=== PATIENT | male | born 1985 | race Two or more races ===

== ENCOUNTER 2024-09-15 14:13 | Emergency (ER) | payer BC, OTHER ==
[~2024-09-15] VITALS: Ht 188 cm; Wt 116.7 kg
[2024-09-15] MEDS: LORazepam 2MG/ML-1ML VIAL IV ONE (14:30)
--- NOTE | 2024-09-15 14:43 | ED.PDOC ---
History of Present Illness HPI Comments 39-year-old male presents with a chief complaint of anxiety, nausea, and vomiting s/p alcohol withdrawal. Patient states that his last drink was yesterday, patient mentions that he drinks about 1 pint of Vodka daily. Patient is stating that he is really anxious and has tremors which seem to be pseudo-tremors. Patient endorses vomiting, but has no active vomiting in triage at this time. No other symptoms or modifying factors present at this time. Chief Complaint: Withdrawal Time Seen by MD: 14:27 Reviewed Notes: Medications, Allergies Allergies: Coded Allergies: NO KNOWN ALLERGIES (Unverified , 09/15/24) Information Source: Patient Mode of Arrival: Ambulatory Severity: Moderate Timing: Days Duration: Since onset Prehospital treatment: None Past Medical History Past Medical History (Other): Alcohol dependence Surgical History: Denies all surgeries Family History Family History: Reviewed,noncontributory to illness Social History Smoker: Non-Smoker Alcohol: Denies ETOH Use Drugs: Denies Drug Use Lives In: Home Constitutional: denies: chills, diaphoresis, fatigue, fever, malaise, sweats, weakness, others EENTM: denies: blurred vision, double vision, ear bleeding, ear discharge, ear drainage, ear pain, ear ringing, eye pain, eye redness, hearing loss, mouth pain, mouth swelling, nasal discharge, nose bleeding, nose congestion, nose pain, photophobia, tearing, throat pain, throat swelling, voice changes, others Respiratory: denies: cough, hemoptysis, orthopnea, SOB at rest, shortness of breath, SOB with excertion, stridor, wheezing, others Cardiovascular: denies: chest pain, dizzy spells, diaphoresis, Dyspnea on exertion, edema, irregular heart beat, left arm pain, lightheadedness, palpitations, PND, syncope, others Gastrointestinal: reports: nausea, vomiting; denies: abdomen distended, abdominal pain, blood streaked bowels, constipated, diarrhea, dysphagia, difficulty swallowing, hematemesis, melena, poor appetite, poor fluid intake, rectal bleeding, rectal pain, others Neurological: denies: dizziness, fainting, headache, left sided numbness, left sided weakness, numbness, paresthesia, pre-existing deficit, right sided numbness, right sided weakness, seizure, speech problems, tingling, tremors, weakness, others Musculoskeletal: denies: back pain, gout, joint pain, joint swelling, muscle pain, muscle stiffness, neck pain, others Integumetry: denies: bruises, change in color, change in hair/nails, dryness, laceration, lesions, lumps, rash, wounds, others Allergic/Immunocompromised: denies: Difficulty Healing, Frequent Infections, Hives, Itching, others Hematologic/Lymphatic: denies: anemia, blood clots, easy bleeding, easy bruising, swollen glands, others Endocrine: denies: excessive hunger, excessive sweating, excessive thirst, excessive urination, flushing, intolerance to cold, intolerance to heat, unexplained weight gain, unexplained weight loss, others Psychiatric: reports: anxiety; denies: bipolar disorder, depression, hopeless, panic disorder, schizophrenia, sleepless, suicidal, others All Other Systems: Reviewed and Negative Physical Exam General Appearance: Mild Distress HEENT: Other (Dry mucous membranes) Neck: Full Range of Motion, Normal Inspection Respiratory: Lungs Clear, No Accessory Muscle Use, No Respiratory Distress, Normal Breath Sounds Cardiovascular: No Edema, No JVD, Regular Rate/Rhythm Breast Exam: Deferred Gastrointestinal: Non Tender, Soft Genitalia: Deferred Pelvic: Deferred Rectal: Deferred Extremities: Normal inspection, Normal range of motion, Non-tender, No pedal edema Musculoskeletal : Apperance: Normal Neurologic: Alert (Oriented x4), Normal Affect, No Sensory Deficits, Other (Appears anxious and has bilateral hand tremors) Cerebellar Function: Normal Reflexes: NOT DONE Skin: Dry, Normal Color, Warm Lymphatic: NOT DONE Was a procedure done? Was a procedure done?: No Differential Dx Considerations may include: Alcohol withdrawal, electrolyte imbalance, anxiety, dehydration/hypovolemia, among others X-Ray, Labs, Meds, VS Vital Signs Date Time Temp Pulse Resp B/P (MAP) Pulse Ox O2 Delivery O2 Flow Rate FiO2 09/15/24 18:28 100 20 114/69 (84) 98 09/15/24 15:51 95 18 136/63 (87) 95 09/15/24 14:38 98.0 91 18 120/81 (94) 97 Lab Test 09/15/24 20:00 09/15/24 16:03 09/15/24 14:50 Range/Units Urine Color Yellow Yellow Urine Clarity Clear Clear Urine pH 5.5 5.0-9.0 Urine Specific [place] 1.023 1.001-1.035 Urine Protein 1+ H Negative Urine Ketones Trace Negative Urine Blood Negative Negative /uL Urine Nitrite Negative Negative Urine Bilirubin Negative Negative Urine Urobilinogen Normal Negative mg/dL Urine Leukocyte Esterase Negative Negative /uL Urine RBC 2 0 - 3 /hpf Urine WBC 4 0 - 3 /hpf Urine Squamous Epithelial Cells Few <5 /hpf Urine Bacteria Few H None Seen /hpf Urine Hyaline Casts Few 0 - 2 /lpf Urine Mucus Few None Seen Urine Glucose Normal Normal mg/dL Troponin I High Sensitivity 3 L 3 L </=54 ng/L White Blood Count 9.3 4.4-10.8 10^3/uL Red Blood Count 5.73 H 4.0-5.20 10^6/uL Hemoglobin 16.6 H 12.2-16.2 g/dL Hematocrit 49.0 H 36.0-46.0 % Mean Corpuscular Volume 85.5 80.0-100.0 fL Mean Corpuscular Hemoglobin 28.9 28.0-32.0 pg Mean Corpuscular Hemoglobin Concent 33.8 32.0-36.0 g/dL Red Cell Distribution Width 14.6 H 11.8-14.3 % Platelet Count 218 140-450 10^3/uL Mean Platelet Volume 7.2 6.9-10.8 fL Neutrophils (%) (Auto) 70.8 37.0-80.0 % Lymphocytes (%) (Auto) 25.7 10.0-50.0 % Monocytes (%) (Auto) 3.0 0.0-12.0 % Eosinophils (%) (Auto) 0.2 0.0-7.0 % Basophils (%) (Auto) 0.3 0.0-2.0 % Neutrophils # (Auto) 6.6 1.6-8.6 10 ^3/uL Lymphocytes # (Auto) 2.4 0.4-5.4 10 ^3/uL Monocytes # (Auto) 0.3 0-1.3 10 ^3/uL Eosinophils # (Auto) 0 0-0.8 10 ^3/uL Basophils # (Auto) 0 0-0.2 10 ^3/uL Nucleated Red Blood Cells 0.0 % Sodium Level 146 H 136-145 mmol/L Potassium Level 4.1 3.5-5.1 mmol/L Chloride Level 108 H 98-107 mmol/L Carbon Dioxide Level 28 20-31 mmol/L Anion Gap 10 5-15 Blood Urea Nitrogen 15 9-23 mg/dL Creatinine 0.92 0.700-1.30 mg/dL Glomerular Filtration Rate Calc 108 >90 mL/min BUN/Creatinine Ratio 16.3 10.0-20.0 Serum Glucose 117 H 74-106 mg/dL Calcium Level 9.3 8.7-10.4 mg/dL Plasma/Serum Blood Alcohol 389.4 H <10 mg/dL Current Medications Medications (Trade) Dose Ordered Sig/Juan Route Start Time Stop Time Status Last Admin Lorazepam (Ativan Inj) 1 mg ONCE ONCE IV 09/15/24 14:30 09/15/24 14:34 DC 09/15/24 14:30 Chlordiazepoxide HCl (Librium Capsule) 50 mg ONCE ONCE PO 09/15/24 14:30 09/15/24 14:34 DC 09/15/24 15:00 Sodium Chloride 1,000 ml @ 1,000 mls/hr Q1H ONCE IV 09/15/24 14:30 09/15/24 15:29 DC 09/15/24 15:09 X-Ray, Labs, Meds, VS Comment 39-year-old male with a history of alcohol dependence presenting complaining of anxiety, nausea and vomiting, stating he is in alcohol withdrawal. Vitals unremarkable Exam remarkable for anxiety and bilateral hand tremors Rhythm strip independently interpreted by me: Sinus rhythm, rate 91, no ectopy. CBC unremarkable, metabolic panel remarkable for sodium 146, chloride 108, serial troponins negative x2, alcohol level 389.4 , UA unremarkable for any abnormality of acute significance Patient treated with the following in the ED: 1 L 0.9 normal saline IV bolus, Ativan 1 mg IV, Librium 50 mg p.o. On re-evaluation, patient states he feels much better and is no longer appearing tremulous. Vitals were stable. Hospitalization was considered, however patient had rapid improvement of symptoms with treatment in the ED, and I no longer feel hospitalization is necessary. Patient was offered hospital admission, however declined, stating he would prefer to go home and follow-up with his primary physician. I am comfortable discharging the patient with close follow-up with his primary doctor. Rx Ativan, Librium Time of 1ST Reevaluation: 14:57 Reevaluation 1ST: Unchanged Patient Education/Counseling: Diagnosis, Treatment, Prognosis Family Education/Counseling: No Family Present Departure 1 Departure Time of Disposition: 20:40 Impression: Primary Impression: Alcohol withdrawal Qualified Codes: F10.939 - Alcohol use, unspecified with withdrawal, unspecified Disposition: HOME / SELF CARE / HOMELESS Condition: Stable Additional Instructions: I have prescribed medication to treat withdrawal. Follow-up with your primary doctor in 1-2 days. e-Prescriptions Ondansetron Odt 4MG Tab (ZOFRAN PO) 4 Mg Tb 4 MG PO TID PRN, #30 TAB prn n/v ODT TAB-DISSOLVE IN MOUTH, THEN SWALLOW Prov: MC MOFFETT MD 09/15/24 Chlordiazepoxide Hcl (Librium) 25 Mg Cp 1 CAP PO TID PRN, #15 CAP prn anxiety or withdrawal symptoms Prov: MC MOFFETT MD 09/15/24 Lorazepam (Lorazepam) 1 Mg Tab 1 TAB PO TID PRN, #15 TAB prn anxiety or withdrawal symptoms Prov: MC MOFFETT MD 09/15/24 Discharged With: Relative Critical Care Note Critical Care Time?: No Stability Stability form required: No I personally scribed for [facility] on 09/15/24 at 14:43. Electronically submitted by Jack Garza ([email or web address]). MC MOFFETT MD Sep 15, 2024 14:43
[2024-09-15] MEDS: chlordiazePOXIDE HCL 25 MG CAP PO ONE (15:00)
[2024-09-15 15:02] LABS: Basophils # (auto) 0 10 ^3/uL (0-0.2); Basophils % (auto) 0.3 % (0.0-2.0); Eosinophils # (auto) 0 10 ^3/uL (0-0.8); Eosinophils % (auto) 0.2 % (0.0-7.0); Hemoglobin 16.6 g/dL (12.2-16.2); Lymphocytes # (auto) 2.4 10 ^3/uL (0.4-5.4); Lymphocytes % (auto) 25.7 % (10.0-50.0); Mean Corpuscular Hemoglobin 28.9 pg (28.0-32.0); Mean Corpuscular Hgb Conc. 33.8 g/dL (32.0-36.0); Mean Corpuscular Volume 85.5 fL (80.0-100.0); Monocytes # (auto) 0.3 10 ^3/uL (0-1.3); Neutrophils # (auto) 6.6 10 ^3/uL (1.6-8.6); Neutrophils % (auto) 70.8 % (37.0-80.0); Platelet Count (auto) 218 10^3/uL (140-450); Red Blood Cells 5.73 10^6/uL (4.0-5.20); Red Cell Distribution Width 14.6 % (11.8-14.3); White Blood Cell 9.3 10^3/uL (4.4-10.8)
[2024-09-15] MEDS: SODIUM CHLORIDE 0.9% 1,000 ML IV ONE (15:09)
[2024-09-15 16:20] LABS: Potassium 4.1 mmol/L (3.5-5.1)
[2024-09-15 16:21] LABS: Anion Gap 10 (5-15); Carbon Dioxide 28 mmol/L (20-31)
[2024-09-15 16:22] LABS: Calcium 9.3 mg/dL (8.7-10.4)
[2024-09-15 16:26] LABS: BUN/Creatinine Ratio 16.3 (10.0-20.0); Blood Urea Nitrogen 15 mg/dL (9-23)
[2024-09-15 16:27] LABS: Chloride 108 mmol/L (98-107); Glucose 117 mg/dL (74-106); Sodium 146 mmol/L (136-145)
[2024-09-15 16:37] LABS: Blood Alcohol 389.4 mg/dL (<10)
[2024-09-15 18:28] VITALS: BP 114/69; PULSE 100; RESP 20; O2SAT 98
[2024-09-15 20:24] LABS: Urine Bacteria FEW /hpf (None Seen); Urine Blood Negative /uL (Negative); Urine Clarity Clear (Clear); Urine Color Yellow (Yellow); Urine Hyaline Cast FEW /lpf (0 - 2); Urine Mucus FEW (None Seen); Urine Protein, UAD 1+ (Negative); Urine Specific Gravity 1.023 (1.001-1.035); Urine Squamous Epithelial Cell FEW /hpf (<5); Urine Urobilinogen Normal (Negative); Urine WBC 4 /hpf (0 - 3); Urine pH 5.5 (5.0-9.0)
[2024-09-15] MEDS ORDERED: ZOFR4T PO (20:47)
[2024-09-15] MEDS ORDERED: CHL25C PO (20:47)
[2024-09-15] MEDS ORDERED: LORA-1123 PO (20:47)
== END 2024-09-15 21:28 | disposition home or self-care (01) ==
LOC: ER 14:13 → EDSEX 14:13 → ER 21:26
DX: F10.939 Alcohol use, unspecified with withdrawal, unspecified (principal)
CPT/HCPCS: 36415; 80048; 80320; 81001; 84484; 85025; 96361; 96374; 99283; J2060; J7030